=== PATIENT | female | born 1955 ===

== ENCOUNTER 2020-04-17 12:18 | Inpatient (IN) ==
[2020-04-17] MEDS: NS 0.9% 1000 ml BAG 1,000 ML IV SCH (14:09)
[2020-04-17] MEDS ORDERED: metroNIDAZOLE IV 500 MG/100ML 500 MG/100 ML BAG IVPB SCH (15:00)
[2020-04-17] MEDS ORDERED: Pneumococcal Vac 23-Polyvalent IM ONE (16:00)
[2020-04-17 17:29] LABS: BUN/Creatinine Ratio 13.5 (8-20); C Reactive Protein 111.42 mg/L (<8.01); Calcium 7.8 mg/dL (8.6-10.3); EGFR African American 142.3 (>60); EGFR Non-African American 117.6 (>60); Potassium 3.2 mmol/L (3.5-5.0)
[2020-04-17 18:20] LABS: Carcinoembryonic Antigen 1.5 ng/mL (0.1-5.0)
[2020-04-17 23:52] LABS: Urine Creatinine Concentration 54.6 mg/dL
[2020-04-18] MEDS: NS 0.9% 1000 ml BAG 1,000 ML IV SCH (01:56)
[2020-04-18 05:27] LABS: Calcium 7.4 mg/dL (8.6-10.3); EGFR African American 148.9 (>60); EGFR Non-African American 123.1 (>60); Potassium 3.1 mmol/L (3.5-5.0)
[2020-04-18] MEDS: metroNIDAZOLE IV 500 MG/100ML 500 MG/100 ML BAG IVPB SCH ×2 (06:05→17:53)
[2020-04-18] MEDS ORDERED: Potassium Chlor 20 meq TAB.ER PO ONE (08:19)
[2020-04-18] MEDS: Aspirin EC 81 mg TAB.EC (enteric coated) PO SCH (08:50)
[2020-04-18] MEDS ORDERED: Pneumococcal Vac 23-Polyvalent IM ONE (10:00)
[2020-04-18] MEDS ORDERED: Midazolam 10 mg/10 ml VIAL 1 mg/ml 10 ml VIAL (10 mg) ONE (11:24)
[2020-04-18] MEDS ORDERED: fentaNYL 100 mcg/2 ml 50 MCG/ML VIAL ONE (11:24)
[2020-04-18 15:27] LABS: Potassium 3.5 mmol/L (3.5-5.0)
[2020-04-18 17:05] LABS: Hepatitis C Antibody Negative (Negative)
[2020-04-19] MEDS: metroNIDAZOLE IV 500 MG/100ML 500 MG/100 ML BAG IVPB SCH ×2 (05:43→17:59)
[2020-04-19 08:19] LABS: Hematocrit 30 % (35-47); Hemoglobin 10.3 g/dL (12.0-16.0); Mean Corpuscular HGB Conc 34 g/dL (31-36); Mean Corpuscular Hemoglobin 36 pg (27-31); Mean Corpuscular Volume 103 fL (80-97); Mean Platelet Volume 6.8 fL (7.4-10.4); Platelet Count 422 10^3/uL (150-450); Red Blood Count 2.89 10^6 /uL (3.70-4.87); Red Cell Distribution Width 14 % (10-15); White Blood Count 5.3 10^3/uL (3.5-10.8)
[2020-04-19 08:30] LABS: BUN/Creatinine Ratio 6.1 (8-20); Calcium 8.1 mg/dL (8.6-10.3); EGFR African American 152.4 (>60); Potassium 3.6 mmol/L (3.5-5.0)
[2020-04-19] MEDS: Aspirin EC 81 mg TAB.EC (enteric coated) PO SCH (08:30)
[2020-04-19] MEDS ORDERED: Iohexol 300 (CONTRAST) 10 ML SDV IV ONE (14:16)
[2020-04-20] MEDS: metroNIDAZOLE IV 500 MG/100ML 500 MG/100 ML BAG IVPB SCH (05:10)
[2020-04-20] MEDS: Aspirin EC 81 mg TAB.EC (enteric coated) PO SCH (08:37)
[2020-04-21 06:15] LABS: Hematocrit 31 % (35-47); Hemoglobin 10.8 g/dL (12.0-16.0); Mean Corpuscular HGB Conc 35 g/dL (31-36); Mean Corpuscular Hemoglobin 36 pg (27-31); Mean Corpuscular Volume 103 fL (80-97); Mean Platelet Volume 6.8 fL (7.4-10.4); Platelet Count 489 10^3/uL (150-450); Red Blood Count 3.02 10^6 /uL (3.70-4.87); Red Cell Distribution Width 14 % (10-15); White Blood Count 4.1 10^3/uL (3.5-10.8)
[2020-04-21 06:37] LABS: Albumin 2.6 g/dL (3.2-5.2); BUN/Creatinine Ratio 6.9 (8-20); C Reactive Protein 19.8 mg/L (<8.01); Calcium 8.2 mg/dL (8.6-10.3); EGFR African American 125.5 (>60); EGFR Non-African American 103.7 (>60); Globulin 2.7 g/dL (2-4); Potassium 3.3 mmol/L (3.5-5.0); Total Bilirubin 0.3 mg/dL (0.2-1.0); Total Protein 5.3 g/dL (6.4-8.9)
[2020-04-21 07:27] VITALS: BP 113/67
[2020-04-21] MEDS ORDERED: Potassium Chlor 20 meq TAB.ER PO ONE (09:00)
[2020-04-21] MEDS: Aspirin EC 81 mg TAB.EC (enteric coated) PO SCH (09:28)
== END 2020-04-21 11:27 | disposition home or self-care (01) | DRG 392 ==
LOC: SSU 13:53
PROVIDERS: ADMIT Hospitalist; ATTEND Internal Medicine